=== PATIENT | female | born 1950 | race Caucasian/White ===

== ENCOUNTER 2020-05-12 19:01 | Emergency (ER) | payer MEDICARE, SELFPAY ==
--- NOTE | ~2020-05-12 | XR_ITS ---
XR wrist LT min 3V 05/12/2020 19:37 Indication: Left wrist pain after fall Procedure: 4 views left wrist Comparison: No prior studies for comparison. Findings: There is a comminuted impaction fracture of the distal radial metaphysis with approximately 3 mm dorsal displacement and 38 degrees dorsal angulation. Moderate dorsal soft tissue swelling. Sca phoid appears to be intact. 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 Impression: 1: Comminuted extra-articular fracture distal radius with dorsal displacement and angulation. Reviewed, dictated and finalized at location A. Impression: 1: Comminuted extra-articular fracture distal radius with dorsal displacement a nd angulation.
[2020-05-12 19:10] VITALS: BP 98/50; PULSE 77; RESP 16; TEMP 37.1; O2SAT 100
--- NOTE | 2020-05-12 19:20 | ED.GENADULT ---
HPI - General Adult General Chief complaint: Extremity Injury, Upper Stated complaint: left wrist injury Time Seen by Provider: 05/12/20 19:20 Source: patient Mode of arrival: ambulatory Limitations: no limitations and physical limitation (Patient currently on oxygen) History of Present Illness HPI narrative: 69-year-old female patient presents to the [facility] with complaints of left wrist pain. Patient states that she was at the [employer] and was walking and tripped over a barstool that was out and landed forward onto her left wrist. Patient is right-hand dominant. Patient denies hitting her head or loss of consciousness. Denies any hip pain, knee pain or ankle pain. Denies any left shoulder pain or left elbow pain. Patient denies taking anything for pain prior to arrival. Related Data Home Medications Medication Instructions Recorded Confirmed Oxygen 2 l EACHNARE DAILY 05/12/20 05/12/20 albuterol sulfate 1 inh INHALATION QID 05/12/20 05/12/20 amlodipine 10 mg PO DAILY 05/12/20 05/12/20 atorvastatin 20 mg PO DAILY 05/12/20 05/12/20 citalopram 20 mg PO DAILY 05/12/20 05/12/20 [id number]-[id number]-[id number] 1 inh INHALATION BID 05/12/20 05/12/20 [Trelegy Ellipta] hydrochlorothiazide 25 mg PO DAILY 05/12/20 05/12/20 omeprazole 40 mg PO DAILY 05/12/20 05/12/20 potassium chloride 10 meq PO DAILY 05/12/20 05/12/20 Allergies Allergy/AdvReac Type Severity Reaction Status Date / Time No Known Drug Allergies Allergy Unknown Unknown Verified 05/12/20 19:10 Review of Systems Review of Systems: Narrative: CONSTITUTIONAL: Denies fever, chills, or sweats. EYES: Denies visual changes, redness, or discharge. ENT: Denies rhinorrhea, congestion, sore throat, or otalgia. CARDIOVASCULAR: Denies chest pain, palpitations, or edema. RESPIRATORY: Denies cough or dyspnea. GASTROINTESTINAL: Denies abdominal pain, nausea, vomiting, or diarrhea. GENITOURINARY: Denies dysuria or hematuria. SKIN: Denies rash or itching. MUSCULOSKELETAL: Denies back pain, joint pain, or myalgia. Positive left wrist pain NEUROLOGIC: Denies headache, numbness, or weakness. PSYCHIATRIC: Denies anxiety or depression. PMFSH Comments At the time of my signature I agree with nursing past medical history, surgical, social, and family history. There is no relevant family history pertinent to the presenting complaint. Exam Narrative: Exam Narrative: GENERAL: Well-appearing, well-nourished, and in no acute distress. HEAD: Normocephalic, atraumatic. EYES: PERRLA and EOMI. ENT: Nares clear, no rhinorrhea or epistaxis. Mucous membranes moist. NECK: Supple. No lymphadenopathy CHEST: Patient has crackly coarse lung sounds noted to bilateral upper and lower lobes on auscultation. No tripoding noted. No labored breathing noted at this time. Patient is currently on intermittent oxygen. HEART: Regular rate and rhythm. No murmur heard. Normal peripheral pulses. ABDOMEN: Soft, nontender, nondistended, normal active bowel sounds. EXTREMITIES: The L wrist is with obvious deformity when compared to the R wrist. No surface trauma, open wounds, patient has obvious swelling over the posterior portion of the left wrist, with obvious deformity. No overlying erythema or warmth. No bony crepitus, positive focal area of TTP. Unable to test or palpate scaphoid fullness or tenderness due to patient's high level of pain. Unable to flex/extension, ulnar/radial deviation. Motor/sensory function of ulnar, radial, median nerves intact. Ulnar and radial pulses intact. SKIN: Warm, dry, no rash. NEURO: No focal deficits. Alert and oriented x3. Course Reevaluation(s) Reevaluation #1: Reevaluated patient and notified her that the wrist is broken and therefore plan of care today is to go ahead and splint the wrist and have her follow-up with the Ortho doctor signal and communications maintainer however if there is another Ortho doctor should that she would like to see instead that is fine as well. Discussed with patient
[2020-05-12] MEDS: ACETAMINOPHEN 500 MG TABLET 1000 MG PO (19:30)
[2020-05-12] MEDS: ONDANSETRON HCL ODT 4 MG TABLET PO (19:30)
== END 2020-05-12 20:25 | disposition home or self-care (01) ==
PROVIDERS: Emergency Provider Nurse Practitioner Family; PCP Nurse Practitioner Adult Health
DX: S52.502A Unspecified fracture of the lower end of left radius, initial encounter for closed fracture (principal); W18.09XA Striking against other object with subsequent fall, initial encounter; J44.9 Chronic obstructive pulmonary disease, unspecified
CPT/HCPCS: 29125; 73110; 99204; A4565; A9270; G0463